=== PATIENT | male | born 1955 | race Caucasian/White ===

== ENCOUNTER 2018-11-25 00:37 | Day surgery (SDC) | payer OTHER ==
[~2018-11-25] VITALS: Ht 190.5 cm; Wt 139.0 kg
[~2018-11-25 00:37] MED LIST: ALBU90OI6 INH; Flovent Diskus50 MCG IH; Mobic15 MG PO
[2018-11-25] MEDS ORDERED: DOXA2 PO (06:31)
--- NOTE | 2018-11-25 11:15 | NUR ---
PT AND FAMILY VERBALIZES UNDERSTANDING WRITTEN AND VERBAL ORDERS. QUESTIONS ANSWERED/ NO FURTHER QUESTIONS. CALL LIGHT WITHIN REACH.
--- NOTE | 2018-11-25 11:45 | NUR ---
PT TO ECHO ROOM FOR ECHOCARDIOGRAM. AMBULATES WITHOUT DIFF. NADN. VSS.
--- NOTE | 2018-11-25 12:31 | NUR ---
PT FINISHED WITH ECHOCARDIOGRAM. TOLERATES WELL. VSS. NADN. PT IV'S DC'D. INTACT. PRESSURE DSG APPLIED. PRESSURE DSG REMOVED FROM LEFT CHEST WALL. NO BLEEDING OR HEMATOMA NOTED. PT DRESSES SELF WITHOUT DIFF. PT DC TO HOME VIA WC
--- NOTE | 2018-11-25 12:46 | NUR ---
Echocardiogram completed.
== END 2018-11-25 12:45 | disposition home or self-care (01) ==
LOC: MHTC 00:37
DX: R00.1 Bradycardia, unspecified (principal); I10 Essential (primary) hypertension; I44.1 Atrioventricular block, second degree; I45.10 Unspecified right bundle-branch block; G47.33 Obstructive sleep apnea (adult) (pediatric); Z96.612 Presence of left artificial shoulder joint
CPT/HCPCS: 33208; 71046; 93005; 93010; 93306; 99152; 99153; C1769; C1785; C1898; J0690; J1644; J2250; J3010; J7030; J7040

== ENCOUNTER 2021-11-19 07:48 | Day surgery (SDC) | payer MEDICARE, BC ==
[~2021-11-19] VITALS: Ht 190.5 cm; Wt 123.4 kg
[~2021-11-19 07:48] MED LIST changes: +AZELASTINE137 MCG/01; +Cialis5 MG; +DOXA2 PO; +SYMBICORT 160-4.6 GM; +TESTOSTERO200 MG/1 M; +Ventolin5 MG/1 ML
== END 2021-11-19 10:32 | disposition home or self-care (01) ==
LOC: ORSCSDS 07:48
PROVIDERS: Internal Medicine Gastroenterology
PROC: 0DBP8ZX Excision of Rectum, Via Natural or Artificial Opening Endoscopic, Diagnostic (ICD-10-PCS; principal; 2021-11-19 09:00)
DX: Z12.11 Encounter for screening for malignant neoplasm of colon (principal); Z86.010 Personal history of colon polyps; D12.8 Benign neoplasm of rectum; Z95.0 Presence of cardiac pacemaker; G47.33 Obstructive sleep apnea (adult) (pediatric); I25.10 Atherosclerotic heart disease of native coronary artery without angina pectoris; J44.9 Chronic obstructive pulmonary disease, unspecified; E11.9 Type 2 diabetes mellitus without complications; J45.909 Unspecified asthma, uncomplicated; I10 Essential (primary) hypertension; Z79.899 Other long term (current) drug therapy; E66.9 Obesity, unspecified; Z68.34 Body mass index [BMI] 34.0-34.9, adult
CPT/HCPCS: 88305; J2704; J7120

== ENCOUNTER 2024-12-28 11:53 | Emergency (ER) | payer MEDICARE, BC ==
[~2024-12-28] VITALS: Ht 188 cm; Wt 113.4 kg
[2024-12-28 13:43] LABS: BASOPHILS ABSOLUTE AUTO 0.03 K/mm3 (0.00-0.23); BASOPHILS PERCENT AUTO 1 % (0-2); EOSINOPHILS ABSOLUTE AUTO 0.08 K/mm3 (0.00-0.68); EOSINOPHILS PERCENT AUTO 2 % (0-6); Hemoglobin 16.5 g/dL (13.5-17.5); IMMATURE GRAN ABSOLUTE AUTO 0.02 K/mm3 (0.00-0.10); IMMATURE GRAN PERCENT AUTO 0 % (0-1); LYMPHOCYTES ABSOLUTE AUTO 1.02 K/mm3 (0.84-5.20); LYMPHOCYTES PERCENT AUTO 20 % (21-46); MONOCYTES ABSOLUTE AUTO 0.37 K/mm3 (0.16-1.47); MONOCYTES PERCENT AUTO 7 % (4-13); Mean Corpuscular HGB 29.2 pg (26.0-34.0); Mean Corpuscular HGB Conc 33.7 g/dL (31.5-36.5); Mean Corpuscular Volume 87 fL (80-100); Mean Platelet Volume 9.9 fL (9.1-12.4); NEUTROPHILS ABSOLUTE AUTO 3.69 K/mm3 (1.96-9.15); NEUTROPHILS PERCENT AUTO 71 % (41-73); Platelet Count 150 K/mm3 (150-400); RDW Coefficient Variation 12.6 % (11.7-14.2); RDW Standard Deviation 40.3 fL (35.1-46.3); Red Blood Cell Count 5.65 M/mm3 (4.30-5.90); White Blood Cell Count 5.21 K/mm3 (4.00-11.30)
[2024-12-28 13:58] LABS: Albumin, Blood 3.7 g/dL (3.4-5.0); Albumin/Globulin Ratio 1.3 (0.8-1.8); Bilirubin, Total 0.8 mg/dL (0.1-1.0); Bun/Creatinine Ratio 27.7 (12.0-20.0); Calcium, Blood 8.3 mg/dL (8.5-10.1); Creatinine, Blood 0.83 mg/dL (0.60-1.20); Globulin, Blood 2.8 g/dL (2.2-4.0); Potassium, Blood 4.2 mmol/L (3.5-5.5); Total Protein, Blood 6.5 g/dL (6.4-8.2)
[2024-12-28] MEDS ORDERED: NEURONTIN300 MG PO (14:51)
[2024-12-28] MEDS ORDERED: SILDENAFIL CIT100 MG PO (14:52)
[2024-12-28 15:45] VITALS: BP 152/87
[2024-12-28] MEDS ORDERED: CLOP75 PO (15:59)
[2024-12-28] MEDS ORDERED: Aspirin 325 MG Tab PO ONE (16:00)
[2024-12-28] MEDS ORDERED: Clopidogrel Bisulfate 75 MG Tab PO ONE (16:00)
--- NOTE | 2024-12-28 16:49 | NUR ---
Pt. is awake and welcomes my visit. 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 Spouse Rhoda is present at bedside. Facilitate an update. Pt. verbalized details of his experience. Listen with empathy and seek to normalize the Pt. experience. Pt. displayed evidence of being clear minded and aware. Prayed with the Pt. and spouse. Both verbalize gratitude for the spiritual care visit.
== END 2024-12-28 16:22 | disposition home or self-care (01) ==
LOC: ER 11:53
PROVIDERS: Physician Assistant
DX: G45.9 Transient cerebral ischemic attack, unspecified (principal); Z88.8 Allergy status to other drugs, medicaments and biological substances; Z79.891 Long term (current) use of opiate analgesic; Z79.899 Other long term (current) drug therapy; Z79.51 Long term (current) use of inhaled steroids; Z79.890 Hormone replacement therapy
CPT/HCPCS: 70450; 70496; 70498; 80053; 85025; 93005; 93010; 99285-25; A9270; Q9967

== ENCOUNTER → 2025-01-29 | Outpatient (CLI) | payer MEDICARE, BC ==
[~2025-01-29] MED LIST changes: +CLOP75 PO; +NEURONTIN300 MG PO; +SILDENAFIL CIT100 MG PO
== END ==
LOC: LAB 14:49 → LAB SHORT 14:49
DX: R33.9 Retention of urine, unspecified (principal)
CPT/HCPCS: 87086

== ENCOUNTER → 2025-06-09 | Outpatient (CLI) | payer MEDICARE, BC ==
[2025-06-09 15:10] LABS: BASOPHILS ABSOLUTE AUTO 0.04 K/mm3 (0.00-0.23); BASOPHILS PERCENT AUTO 1 % (0-2); EOSINOPHILS ABSOLUTE AUTO 0.07 K/mm3 (0.00-0.68); EOSINOPHILS PERCENT AUTO 1 % (0-6); Hematocrit 46.6 % (37.0-53.0); Hemoglobin 16.1 g/dL (13.5-17.5); IMMATURE GRAN ABSOLUTE AUTO 0.06 K/mm3 (0.00-0.10); IMMATURE GRAN PERCENT AUTO 1 % (0-1); LYMPHOCYTES ABSOLUTE AUTO 1.36 K/mm3 (0.84-5.20); LYMPHOCYTES PERCENT AUTO 17 % (21-46); MONOCYTES ABSOLUTE AUTO 0.51 K/mm3 (0.16-1.47); MONOCYTES PERCENT AUTO 6 % (4-13); Mean Corpuscular HGB Conc 34.5 g/dL (31.5-36.5); Mean Corpuscular Volume 87 fL (80-100); NEUTROPHILS ABSOLUTE AUTO 6.02 K/mm3 (1.96-9.15); NEUTROPHILS PERCENT AUTO 75 % (41-73); NRBC ABSOLUTE 0.00 K/mm3 (0.00-0.02); NRBC Auto 0.0 /100 WBC (0.0-0.2); Platelet Count 247 K/mm3 (150-400); RDW Coefficient Variation 12.4 % (11.7-14.2); RDW Standard Deviation 38.8 fL (35.1-46.3)
[2025-06-09 15:19] LABS: Alanine Aminotransfer (ALT/SGP 58.0 U/L (12-78); Albumin, Blood 3.7 g/dL (3.4-5.0); Albumin/Globulin Ratio 1.0 (0.8-1.8); Anion Gap 13.0 mmol/L (3-11); Aspartate Aminotrans (AST/SGOT 35.0 U/L (12-37); Bilirubin, Total 0.9 mg/dL (0.1-1.0); Blood Urea Nitrogen 13.0 mg/dL (8-24); CO2, Blood 28.0 mmol/L (21-32); Calcium, Blood 8.9 mg/dL (8.5-10.1); Chloride, Blood 99.0 mmol/L (98-108); Creatinine, Blood 1.07 mg/dL (0.60-1.20); Globulin, Blood 3.6 g/dL (2.2-4.0); Glucose, Blood 96.0 mg/dL (70-99); Potassium, Blood 4.3 mmol/L (3.5-5.5); Sodium, Blood 136.0 mmol/L (136-145); Total Protein, Blood 7.3 g/dL (6.4-8.2)
== END ==
LOC: LAB 15:04 → LAB SHORT 15:04
PROVIDERS: Physician Assistant
DX: Z97.8 Presence of other specified devices (principal); R53.83 Other fatigue
CPT/HCPCS: 80053; 83605; 85025; 87086

== ENCOUNTER → 2025-07-01 | Outpatient (CLI) | payer MEDICARE, BC | LOC: LAB SHORT 10:17 → LAB 10:17 | DX: R82.998 Other abnormal findings in urine (principal); Z87.440 Personal history of urinary (tract) infections | CPT/HCPCS: 87077; 87086; 87186 ==